=== PATIENT | female | born 1985 | race Caucasian/White ===

== ENCOUNTER 2020-01-19 09:44 | Emergency (ER) | payer OTHER, SELFPAY ==
[~2020-01-19] VITALS: Ht 152.4 cm; Wt 113.4 kg
[2020-01-19 09:45] VITALS: BP 130/85; Ht 152.4 cm; Wt 113.4 kg
== END 2020-01-19 10:49 | disposition home or self-care (01) ==
LOC: ED 09:44
DX: J02.9 Acute pharyngitis, unspecified (principal); R05 Cough; Z20.828 Contact with and (suspected) exposure to other viral communicable diseases
CPT/HCPCS: U0003-CS